=== PATIENT | male | born 1970 | race Caucasian/White ===

== ENCOUNTER 2016-12-28 06:12 | Day surgery (SDC) | payer OTHER ==
[~2016-12-28] VITALS: Ht 168.9 cm; Wt 106.0 kg
[~2016-12-28 06:12] MED LIST: ALBU8.5H IH; BECL8.7A5 IH; CALC-895 PO; FEBU40T PO; FLUT16H NASAL; LANS30CA PO; LISI-618 PO; MONT10TA24 PO; ONDA4TAB7 PO; [UNRECOGNIZED DRUG - CODE]
[2016-12-28] MEDS ORDERED: SODIUM CHLORIDE 0.9% 1,000 ML IV ONE ×2 (07:00→07:10)
[2016-12-28] MEDS ORDERED: FERR-72 PO (08:01)
[2016-12-28] MEDS ORDERED: ALEN70TA48 PO (08:01)
[2016-12-28] MEDS ORDERED: DEXL60CA3 PO (08:01)
[2016-12-28] MEDS ORDERED: MOME13HF2 IH (08:01)
[2016-12-28] MEDS ORDERED: CHOL200018 PO (08:01)
[2016-12-28] MEDS ORDERED: TAMS0.4C32 PO (08:01)
[2016-12-28] MEDS ORDERED: CYAN250014 PO (08:01)
[2016-12-28] MEDS ORDERED: MIDAZOLAM HCL 2 MG/2 ML VIAL ONE (08:12)
[2016-12-28] MEDS ORDERED: FentaNYL CITRATE-PF 100 MCG/2 ML VIAL ONE (08:12)
[2016-12-28] MEDS ORDERED: MethylPREDNISolone SOD SUCC 125 MG/2 ML VIAL IVP ONE (08:45)
[2016-12-28] MEDS ORDERED: MethylPREDNISolone SOD SUCC 125 MG/2 ML VIAL ONE (09:37)
[2016-12-28] MEDS ORDERED: BENZOCAINE 20% 50 MCG/SPRAY 57 GM TP ONE (17:21)
[2016-12-28] MEDS ORDERED: LIDOCAINE HCL 2% 30 ML JELLY TP ONE (17:21)
[2016-12-28] MEDS ORDERED: LIDOCAINE HCL 4% 50 ML SOLUTION TP ONE (17:21)
[2016-12-28] MEDS ORDERED: OXYGEN THERAPY IH SCH (20:00)
== END 2016-12-28 10:15 | disposition home or self-care (01) ==
LOC: SURGERY 06:12
PROVIDERS: ATTEND Internal Medicine Critical Care Medicine
DX: J38.4 Edema of larynx (principal); B37.0 Candidal stomatitis; G47.30 Sleep apnea, unspecified; M19.90 Unspecified osteoarthritis, unspecified site; M10.9 Gout, unspecified; Z72.89 Other problems related to lifestyle; Z90.49 Acquired absence of other specified parts of digestive tract; Z98.890 Other specified postprocedural states
CPT/HCPCS: 31623; 31624; 71010; 87015; 87070; 87101; 87205; 87220; J2250; J2930; J3010; J7030; 88108; 88312